=== PATIENT | male | born 1995 | race Caucasian/White ===

== ENCOUNTER 2021-03-29 14:34 | Emergency (ER) | payer OTHER ==
[~2021-03-29] VITALS: Ht 188 cm; Wt 77.6 kg
[2021-03-29 15:36] VITALS: BP 120/53
[2021-03-29] MEDS ORDERED: ATIVAN0.5 M1 PO (15:38)
[2021-03-29] MEDS ORDERED: ZOLOFT50 M1 PO (15:38)
== END 2021-03-29 15:50 | disposition home or self-care (01) ==
LOC: ER 14:34
DX: F41.9 Anxiety disorder, unspecified (principal)

== ENCOUNTER 2021-11-02 16:35 | Emergency (ER) | payer OTHER ==
[~2021-11-02] VITALS: Ht 182.9 cm; Wt 90.7 kg
[~2021-11-02 16:35] MED LIST: ATIVAN0.5 M1 PO; ZOLOFT50 M1 PO
[2021-11-02 16:37] VITALS: BP 123/78
[2021-11-02] MEDS ORDERED: HYDROXYZINE HCL50 MG PO (17:27)
== END 2021-11-02 17:37 | disposition home or self-care (01) ==
LOC: ER 16:35
DX: F41.9 Anxiety disorder, unspecified (principal); Z76.0 Encounter for issue of repeat prescription